=== PATIENT | male | born 1980 | race Caucasian/White ===

== ENCOUNTER 2017-12-28 07:47 | Inpatient (IN) | payer OTHER ==
[~2017-12-28] VITALS: Ht 167.6 cm; Wt 60.9 kg
[2017-12-28] VITALS (12 sets, daily range): BP systolic 109–179; BP diastolic 67–92; PULSE 80–143; RESP 16–20; TEMP 98.5–99.7; O2SAT 93–99
[~2017-12-28 07:47] MED LIST: IBUP800T23 PO
[2017-12-28 08:32] LABS: AUTOMATED NEUTROPHIL # 4.9 TH/MM3 (1.8-7.7); BASOPHIL % 0.6 % (0.0-2.0); HEMATOCRIT 43.5 % (39.0-51.0); HEMOGLOBIN 14.6 GM/DL (13.0-17.0); LYMPH % 4.9 % (9.0-44.0); LYMPHOCYTE # 0.3 TH/MM3 (1.0-4.8); MEAN CELL VOLUME 85.3 FL (80.0-100.0); MEAN CORPUSCULAR HEMOGLOBIN 28.7 PG (27.0-34.0); MEAN CORPUSCULAR HGB CONC 33.6 % (32.0-36.0); MEAN PLATELET VOLUME 7.7 FL (7.0-11.0); MONO % 8.5 % (0.0-8.0); MONOCYTE # 0.5 TH/MM3 (0-0.9); PLATELET COUNT 144 TH/MM3 (150-450); RED BLOOD COUNT 5.11 MIL/MM3 (4.50-5.90); RED CELL DISTRIBUTION WIDTH 13.5 % (11.6-17.2); WHITE BLOOD COUNT 5.7 TH/MM3 (4.0-11.0)
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
[2017-12-28 08:47] LABS: ALBUMIN 4.4 GM/DL (3.4-5.0); ALT (GPT) 164 U/L (12-78); AST (GOT) 232 U/L (15-37); BICARBONATE 26.8 MEQ/L (21.0-32.0); BLOOD UREA NITROGEN 14 MG/DL (7-18); CALCIUM 9.7 MG/DL (8.5-10.1); CHLORIDE 97 MEQ/L (98-107); CREATININE 1.39 MG/DL (0.60-1.30); GLOMERULAR FILTRATION RATE 58 ML/MIN (>89); GLUCOSE,RANDOM 124 MG/DL (74-106); SODIUM (NA) 139 MEQ/L (136-145)
[2017-12-28 08:56] LABS: ALKALINE PHOSPHATASE 111 U/L (45-117); TOTAL BILIRUBIN ADULT 0.9 MG/DL (0.2-1.0); TOTAL PROTEIN 8.3 GM/DL (6.4-8.2)
[2017-12-28] MEDS ORDERED: LORazepam 2 MG TAB PO PRN (12:15)
[2017-12-28] MEDS ORDERED: FLUMAZENIL 0.5 MG/5 ML VIAL IV PUSH PRN (12:15)
[2017-12-28] MEDS ORDERED: LORazepam 1 MG TAB PO PRN (12:15)
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
[2017-12-28] MEDS ORDERED: SODIUM CHLORIDE 0.9% FLUSH 10 ML FLUSH IV FLUSH PRN (20:00)
[2017-12-28] MEDS ORDERED: LORazepam 2 MG/ML VIAL IM ONE (20:15)
[2017-12-28] MEDS ORDERED: HALOPERIDOL LACTATE 5 MG/ML AMP IM ONE (20:15)
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
[2017-12-28] MEDS ORDERED: SODIUM CHLOR 0.9% 1000 ML INJ 1,000 ML IV ONE (21:15)
[2017-12-28 21:28] LABS: BLOOD, URINE NEG (NEG); CALCIUM OXALATE CRYSTALS,URINE RARE /hpf; GLUCOSE,URINE 300 mg/dL (NEG); HYALINE CAST, URINE 9 /lpf (RARE); KETONE, URINE TRACE mg/dL (NEG); MUCUS URINE FEW /lpf (OCC); NITRITE,URINE NEG (NEG); URINE LEUKOCYTE ESTERASE NEG (NEG)
[2017-12-28 21:30] LABS: BILIRUBIN, URINE NEG (NEG); URINE COLOR AMBER (YELLW/STRAW)
[2017-12-28] MEDS: LORazepam 2 MG/ML VIAL IV PUSH PRN ×6 (22:05→23:27)
[2017-12-28] MEDS ORDERED: LACTULOSE SYRUP 20 GM/30 ML CUP PO ONE (22:15)
[2017-12-28] MEDS ORDERED: OLANZapine IM 10 MG VIAL IM ONE (23:00)
[2017-12-29] VITALS (23 sets, daily range): BP systolic 108–168; BP diastolic 69–101; PULSE 47–110; RESP 14–30; TEMP 97.8–99.1; O2SAT 93–100
[2017-12-29] MEDS ORDERED: SODIUM CHLOR 0.9% 1000 ML INJ 1,000 ML IV ONE
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
[2017-12-29] MEDS ORDERED: SODIUM CHLOR 0.9% 1000 ML INJ 1,000 ML IV SCH (00:17)
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
[2017-12-29] MEDS: LORazepam 2 MG/ML VIAL IV PUSH PRN ×3 (00:26→09:08)
[2017-12-29] MEDS ORDERED: LACTULOSE SYRUP 20 GM/30 ML CUP PO PRN (00:30)
[2017-12-29] MEDS ORDERED: DEXMEDETOMIDINE INJ 200 MCG in SODIUM CHLORIDE 0.9% INJ 50 ML IV PRN (00:30)
[2017-12-29] MEDS ORDERED: SENNOSIDES 8.6 MG TAB PO PRN (00:30)
[2017-12-29] MEDS ORDERED: CHLORHEXIDINE GLUCONATE 2 % 1 PACK (2 CLOTHS) TOP PRN (00:30)
[2017-12-29] MEDS ORDERED: NURSING INFORMATION XX SCH (00:30)
[2017-12-29] MEDS ORDERED: ONDANSETRON ODT 4 MG TAB PO PRN (00:30)
[2017-12-29] MEDS ORDERED: ACETAMINOPHEN/HYDROcodone 325 MG/5 MG TAB PO PRN (00:30)
[2017-12-29] MEDS ORDERED: MAGNESIUM HYDROXIDE SUSP 30 ML CUP PO PRN (00:30)
[2017-12-29] MEDS ORDERED: BISACODYL 10 MG SUPP RECTAL PRN (00:30)
[2017-12-29] MEDS ORDERED: ACETAMINOPHEN 325 MG TAB PO PRN (00:30)
[2017-12-29] MEDS ORDERED: SODIUM CHLORIDE 0.9% FLUSH 10 ML FLUSH IV FLUSH PRN ×2 (00:30)
[2017-12-29] MEDS ORDERED: RESP: ALBUTEROL 2.5 MG/3 ML NEB (PRN) INH (00:30)
[2017-12-29] MEDS ORDERED: MORPHINE SULFATE 4 MG/ML INJ IV PUSH PRN (00:30)
[2017-12-29] MEDS: MULTIVITAMIN INJ 10 ML, FOLIC ACID INJ 1 MG in SODIUM CHLORID 0.9% 500 ML INJ 500 ML IV SCH (01:00)
[2017-12-29] MEDS ORDERED: ROCURONIUM INJ 100 MG/10 ML VIAL IV ONE (02:30)
[2017-12-29] MEDS ORDERED: ETOMIDATE 40 MG/20 ML VIAL IV PUSH ONE (02:30)
[2017-12-29] MEDS: PROPOFOL 1000 MG/100 ML INJ 100 ML IV PRN ×3 (03:15→17:33)
[2017-12-29] MEDS: fentaNYL DRIP 250 ML IV PRN ×2 (03:15→21:55)
--- NOTE | 2017-12-29 03:49 | RADRPT ---
EXAM DATE/TIME: 12/29/2017 03:05 [facility] COMPARISON: No previous studies available for comparison. INDICATIONS : Intubation tube placement. MEDICAL HISTORY : None. SURGICAL HISTORY : None. ENCOUNTER: Initial ACUITY: 1 day PAIN SCORE: Non-responsive. LOCATION: Bilateral chest FINDINGS: Tip of the endotracheal tube 2 cm from the bandar. Heart normal size. Linear atelectasis within the r etrocardiac left base. Right lung is clear.. No pneumothorax or effusion. CONCLUSION: Endotracheal tube in good position. Naif Low Jr., MD on December 29, 2017 at 3:47 Board Certified Radiologist. This report was verified electronically.
[2017-12-29] MEDS: CHLORHEXIDINE GLUCONATE 2 % 1 PACK (2 CLOTHS) TOP SCH (04:00)
[2017-12-29] MEDS: RESP: ALBUTEROL 2.5 MG/IPRATROPIUM 0.5 MG NEB (SCH) INH ×4 (04:45→20:26)
[2017-12-29] MEDS ORDERED: POTASSIUM PHOSPHATE INJ 30 MMOL in SODIUM CHLOR 0.9% 250 ML INJ 250 ML IV PRN (06:00)
[2017-12-29] MEDS ORDERED: SODIUM PHOSPHATE INJ 30 MMOL in SODIUM CHLOR 0.9% 250 ML INJ 240 ML IV PRN (06:00)
[2017-12-29] MEDS ORDERED: POTASSIUM CHLORIDE 25 MEQ EFFERVESCENT TAB PO PRN (06:00)
[2017-12-29] MEDS ORDERED: DEXTROSE 50% IN WATER 50 ML VIAL(D50) IV PUSH PRN (06:00)
[2017-12-29] MEDS ORDERED: POTASSIUM PHOSPHATE MONOBASIC 500 MG TAB PO/TUBE PRN (06:00)
[2017-12-29] MEDS ORDERED: MAGNESIUM SULFATE INJ 2 GM in SODIUM CHLORIDE 0.9% INJ 96 ML IV PRN (06:00)
[2017-12-29] MEDS ORDERED: GLUCAGON 1 MG/ML VIAL OTHER PRN (06:00)
[2017-12-29] MEDS ORDERED: POTASSIUM CHLOR 40 MEQ PREMIX 100 ML IV PRN ×2 (06:00)
[2017-12-29] MEDS ORDERED: POTASSIUM PHOSPHATE MONOBASIC 500 MG TAB PO PRN (06:00)
[2017-12-29] MEDS ORDERED: MAGNESIUM SULFATE INJ 4 GM in SODIUM CHLORIDE 0.9% INJ 92 ML IV PRN (06:00)
[2017-12-29] MEDS ORDERED: ACETAMINOPHEN 650 MG/20.3 ML UDC PO PRN (06:00)
[2017-12-29] MEDS: INSULIN ASPART SUPPLEMENTAL SCALE SQ SCH ×3 (06:00→17:42)
[2017-12-29] MEDS ORDERED: MAGNESIUM OXIDE 400 MG TAB PO PRN (06:00)
[2017-12-29] MEDS: LACTATED RINGER'S 1000 ML INJ 1,000 ML IV SCH ×4 (06:41→21:06)
[2017-12-29] MEDS: SODIUM CHLORIDE 0.9% FLUSH 10 ML FLUSH IV FLUSH SCH ×4 (07:53→20:00)
[2017-12-29] MEDS: DOCUSATE SODIUM 50 MG/SENNA 8.6 MG TAB PO SCH ×2 (07:53→19:25)
[2017-12-29] MEDS: PANTOPRAZOLE SODIUM 40 MG VIAL IV PUSH SCH (07:53)
[2017-12-29] MEDS: LACTULOSE SYRUP 20 GM/30 ML CUP PO SCH ×2 (07:53→20:06)
[2017-12-29] MEDS: DEXMEDETOMIDINE INJ 1,000 MCG in SODIUM CHLOR 0.9% 250 ML INJ 240 ML IV PRN (07:53)
[2017-12-29 08:29] LABS: BICARBONATE 25.4 MEQ/L (21.0-32.0); CALCIUM 7.8 MG/DL (8.5-10.1); CREATININE 0.7 MG/DL (0.60-1.30); MAGNESIUM 1.9 MG/DL (1.5-2.5)
[2017-12-29] MEDS: POTASSIUM CHLOR 20 MEQ PREMIX 100 ML IV PRN ×7 (08:36→20:08)
--- NOTE | 2017-12-29 11:22 | RADRPT ---
EXAM DATE/TIME: 12/29/2017 10:15 [facility] COMPARISON: No previous studies available for comparison. INDICATIONS : Increased lab values. MEDICAL HISTORY : Tobacco use. Altered mental status. SURGICAL HISTORY : Unable to obtain. ENCOUNTER: Initial ACUITY: 1 day PAIN SCORE: Nonresponsive. LOCATION: Bilateral upper quadrant MEASUREMENTS: LIVER: 16.3 cm length COMMON DUCT: 5 mm RIGHT KIDNEY: 11.2 x 4.6 x 3.7 cm SPLEEN: 10.7 cm length FINDINGS: LIVER: Increased echotexture without focal lesion or ductal dilatation. COMMON DUCT: No intraluminal mass or stone visualized. GALLBLADDER: Contains no stones, demonstrates no wall thickening or pericholecystic fluid. PANCREAS: The visualized portions are within normal limits. RIGHT KIDNEY: No hydronephrosis, stone or mass. SPLEEN: No focal lesion. CONCLUSION: The liver is echogenic and size upper limits normal. This is nonspecific but can be seen with steatos is for underlying hepatocellular disease. Kt Sharp MD on December 29, 2017 at 11:20 Board Certified Radiologist. This report was verified electronically.
[2017-12-29] MEDS: CHLORHEXIDINE 0.12% (ORAL KIT) 15 ML CUP MT SCH ×3 (12:54→20:06)
[2017-12-29] MEDS: ARTIFICIAL TEARS OPTH SOLN 15 ML BTL EACH EYE SCH ×2 (12:55→15:01)
--- NOTE | 2017-12-29 17:14 | MG ---
cc: Mohan Johnson MD, Mandeep MD EEG RECORD [id number] CLINICAL HISTORY: A 37-year-old history of mental status changes, intubated on sedation. INTERPRETATION: Posterior rhythm demonstrates 8-10 Hz activity, 20-60 microvolts. Increased beta frequencies, reduced driving with photic stimulation. Good EEG variability reactivity. Sharply contoured theta waveforms epoch 95 left frontal. No epileptic activity appreciated. IMPRESSION: Overall normal, possibly sleep appearing electroencephalogram with increased beta frequencies likely psychotropic medication effect. Clinical correlation. Mohan Johnson MD MG/SA , 04:55 PM , 05:13 PM
[2017-12-29 19:24] LABS: BICARBONATE 26.2 MEQ/L (21.0-32.0); CALCIUM 8.6 MG/DL (8.5-10.1); CREATININE 0.78 MG/DL (0.60-1.30); MAGNESIUM 1.9 MG/DL (1.5-2.5); PHOSPHORUS 3.2 MG/DL (2.5-4.9)
[2017-12-30] VITALS (20 sets, daily range): BP systolic 135–182; BP diastolic 64–102; PULSE 57–96; RESP 14–20; TEMP 98.3–100.2; O2SAT 97–100
[2017-12-30] MEDS: MULTIVITAMIN INJ 10 ML, FOLIC ACID INJ 1 MG in SODIUM CHLORID 0.9% 500 ML INJ 500 ML IV SCH ×2 (00:32→00:33)
[2017-12-30] MEDS: POTASSIUM CHLOR 20 MEQ PREMIX 100 ML IV PRN ×2 (01:24→03:54)
[2017-12-30] MEDS: CHLORHEXIDINE GLUCONATE 2 % 1 PACK (2 CLOTHS) TOP SCH (03:15)
[2017-12-30] MEDS: RESP: ALBUTEROL 2.5 MG/IPRATROPIUM 0.5 MG NEB (SCH) INH ×4 (03:51→20:44)
[2017-12-30 04:13] LABS: AUTOMATED NEUTROPHIL # 2.5 TH/MM3 (1.8-7.7); BASOPHIL % 0.8 % (0.0-2.0); EOSINOPHIL # 0.2 TH/MM3 (0-0.4); EOSINOPHIL % 4.1 % (0.0-4.0); HEMATOCRIT 39.2 % (39.0-51.0); HEMOGLOBIN 13.1 GM/DL (13.0-17.0); LYMPH % 22.4 % (9.0-44.0); MEAN CELL VOLUME 86.5 FL (80.0-100.0); MEAN CORPUSCULAR HEMOGLOBIN 28.9 PG (27.0-34.0); MEAN CORPUSCULAR HGB CONC 33.4 % (32.0-36.0); MEAN PLATELET VOLUME 7.1 FL (7.0-11.0); MONO % 15.4 % (0.0-8.0); MONOCYTE # 0.7 TH/MM3 (0-0.9); NEUT % 57.3 % (16.0-70.0); PLATELET COUNT 89 TH/MM3 (150-450); RED BLOOD COUNT 4.54 MIL/MM3 (4.50-5.90); RED CELL DISTRIBUTION WIDTH 13.5 % (11.6-17.2); WHITE BLOOD COUNT 4.4 TH/MM3 (4.0-11.0)
[2017-12-30 04:25] LABS: INTERNATIONAL NORMALIZED RATIO 1.1 RATIO; PROTHROMBIN TIME - PATIENT 10.7 SEC (9.8-11.6)
[2017-12-30 04:34] LABS: ALBUMIN 3.1 GM/DL (3.4-5.0); ALT (GPT) 194 U/L (12-78); AST (GOT) 437 U/L (15-37); BICARBONATE 22.8 MEQ/L (21.0-32.0); BLOOD UREA NITROGEN 11 MG/DL (7-18); CALCIUM 8.1 MG/DL (8.5-10.1); CHLORIDE 111 MEQ/L (98-107); CREATININE 0.79 MG/DL (0.60-1.30); GLOMERULAR FILTRATION RATE 112 ML/MIN (>89); GLUCOSE,RANDOM 60 MG/DL (74-106); MAGNESIUM 1.8 MG/DL (1.5-2.5); PHOSPHORUS 3.3 MG/DL (2.5-4.9); SODIUM (NA) 145 MEQ/L (136-145)
--- NOTE | 2017-12-30 04:54 | RADRPT ---
EXAM DATE/TIME: 12/30/2017 03:18 [facility] COMPARISON: CHEST SINGLE AP, December 29, 2017, 3:05. INDICATIONS : Shortness of breath, possible pulmonary disease. MEDICAL HISTORY : None. SURGICAL HISTORY : None. ENCOUNTER: Subsequent ACUITY: 2 days PAIN SCORE: Non-responsive. LOCATION: Bilateral chest FINDINGS: A single view of the chest demonstrates endotracheal tube and nasogastric tube in good position. Mini mal basilar dependent atelectasis. No pneumothorax or effusion. Heart size mildly enlarged. CONCLUSION: 1. Endotracheal tube and nasogastric tube in good position. Minimal basilar and dependent atelectasis . Balta Hernandez MD on December 30, 2017 at 4:52 Board Certified Radiologist. This report was verified electronically.
[2017-12-30 05:08] LABS: ALKALINE PHOSPHATASE 152 U/L (45-117); TOTAL BILIRUBIN ADULT 2.8 MG/DL (0.2-1.0); TOTAL PROTEIN 6.3 GM/DL (6.4-8.2)
[2017-12-30] MEDS: INSULIN ASPART SUPPLEMENTAL SCALE SQ SCH ×5 (05:28→23:05)
[2017-12-30] MEDS: LORazepam 2 MG/ML VIAL IV PUSH PRN (08:15)
[2017-12-30] MEDS: DOCUSATE SODIUM 50 MG/SENNA 8.6 MG TAB PO SCH ×2 (08:16→19:22)
[2017-12-30] MEDS: LACTULOSE SYRUP 20 GM/30 ML CUP PO SCH ×2 (08:16→20:00)
[2017-12-30] MEDS: PANTOPRAZOLE SODIUM 40 MG VIAL IV PUSH SCH (08:17)
[2017-12-30] MEDS: ARTIFICIAL TEARS OPTH SOLN 15 ML BTL EACH EYE SCH ×3 (08:18→17:47)
[2017-12-30] MEDS: SODIUM CHLORIDE 0.9% FLUSH 10 ML FLUSH IV FLUSH SCH ×4 (08:18→19:22)
[2017-12-30] MEDS: CHLORHEXIDINE 0.12% (ORAL KIT) 15 ML CUP MT SCH ×2 (08:19→19:22)
[2017-12-30] MEDS: LACTATED RINGER'S 1000 ML INJ 1,000 ML IV SCH ×3 (08:22→21:40)
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
[2017-12-30] MEDS: DEXMEDETOMIDINE INJ 1,000 MCG in SODIUM CHLOR 0.9% 250 ML INJ 240 ML IV PRN (14:48)
[2017-12-30] MEDS: HEPARIN SODIUM - SQ 10,000 UNITS/ML VIAL SQ SCH (20:01)
[2017-12-31] VITALS (13 sets, daily range): BP systolic 123–149; BP diastolic 80–90; PULSE 57–93; RESP 18–26; TEMP 98–99.4; O2SAT 97–100
[2017-12-31] MEDS: MULTIVITAMIN INJ 10 ML, FOLIC ACID INJ 1 MG in SODIUM CHLORID 0.9% 500 ML INJ 500 ML IV SCH (00:01)
[2017-12-31] MEDS: CHLORHEXIDINE GLUCONATE 2 % 1 PACK (2 CLOTHS) TOP SCH (02:57)
[2017-12-31] MEDS: LORazepam 2 MG/ML VIAL IV PUSH PRN ×2 (03:15→23:51)
[2017-12-31] MEDS: RESP: ALBUTEROL 2.5 MG/IPRATROPIUM 0.5 MG NEB (SCH) INH ×4 (03:29→21:10)
[2017-12-31] MEDS: LACTATED RINGER'S 1000 ML INJ 1,000 ML IV SCH ×4 (04:40→21:03)
[2017-12-31] MEDS: INSULIN ASPART SUPPLEMENTAL SCALE SQ SCH ×3 (05:09→18:00)
[2017-12-31 06:41] LABS: ALBUMIN 3.1 GM/DL (3.4-5.0); ALKALINE PHOSPHATASE 135 U/L (45-117); ALT (GPT) 193 U/L (12-78); AST (GOT) 517 U/L (15-37); BICARBONATE 28.5 MEQ/L (21.0-32.0); BLOOD UREA NITROGEN 5 MG/DL (7-18); CALCIUM 8.6 MG/DL (8.5-10.1); CHLORIDE 101 MEQ/L (98-107); CREATININE 0.68 MG/DL (0.60-1.30); GLOMERULAR FILTRATION RATE 133 ML/MIN (>89); GLUCOSE,RANDOM 101 MG/DL (74-106); SODIUM (NA) 139 MEQ/L (136-145); TOTAL BILIRUBIN ADULT 1.8 MG/DL (0.2-1.0); TOTAL PROTEIN 6.5 GM/DL (6.4-8.2)
[2017-12-31] MEDS: POTASSIUM CHLOR 20 MEQ PREMIX 100 ML IV PRN (06:45)
[2017-12-31 07:31] LABS: AUTOMATED NEUTROPHIL # 2.9 TH/MM3 (1.8-7.7); BASOPHIL # 0.1 TH/MM3 (0-0.2); BASOPHIL % 1.5 % (0.0-2.0); EOSINOPHIL # 0.4 TH/MM3 (0-0.4); EOSINOPHIL % 6.4 % (0.0-4.0); HEMATOCRIT 39.1 % (39.0-51.0); HEMOGLOBIN 13.3 GM/DL (13.0-17.0); LYMPH % 20.8 % (9.0-44.0); LYMPHOCYTE # 1.2 TH/MM3 (1.0-4.8); MEAN CELL VOLUME 85.2 FL (80.0-100.0); MEAN CORPUSCULAR HEMOGLOBIN 29.1 PG (27.0-34.0); MEAN CORPUSCULAR HGB CONC 34.1 % (32.0-36.0); MEAN PLATELET VOLUME 7.4 FL (7.0-11.0); MONO % 19.2 % (0.0-8.0); MONOCYTE # 1.1 TH/MM3 (0-0.9); NEUT % 52.1 % (16.0-70.0); PLATELET COUNT 91 TH/MM3 (150-450); RED BLOOD COUNT 4.59 MIL/MM3 (4.50-5.90); RED CELL DISTRIBUTION WIDTH 13.1 % (11.6-17.2); WHITE BLOOD COUNT 5.6 TH/MM3 (4.0-11.0)
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
[2017-12-31] MEDS: CHLORHEXIDINE 0.12% (ORAL KIT) 15 ML CUP MT SCH ×2 (08:00→20:00)
[2017-12-31] MEDS: DOCUSATE SODIUM 50 MG/SENNA 8.6 MG TAB PO SCH ×2 (08:25→21:00)
[2017-12-31] MEDS: LACTULOSE SYRUP 20 GM/30 ML CUP PO SCH ×2 (08:25→21:00)
[2017-12-31] MEDS: HEPARIN SODIUM - SQ 10,000 UNITS/ML VIAL SQ SCH ×2 (08:26→21:00)
[2017-12-31] MEDS: PANTOPRAZOLE SODIUM 40 MG VIAL IV PUSH SCH (08:26)
[2017-12-31] MEDS: SODIUM CHLORIDE 0.9% FLUSH 10 ML FLUSH IV FLUSH SCH ×4 (08:27→21:00)
[2017-12-31] MEDS: ARTIFICIAL TEARS OPTH SOLN 15 ML BTL EACH EYE SCH ×3 (08:28→18:00)
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
[2017-12-31] MEDS: DEXMEDETOMIDINE INJ 1,000 MCG in SODIUM CHLOR 0.9% 250 ML INJ 240 ML IV PRN (21:02)
[2018-01-01] VITALS (22 sets, daily range): BP systolic 97–185; BP diastolic 54–106; PULSE 56–101; RESP 20–37; TEMP 97.5–98.9; O2SAT 97–100
[2018-01-01] MEDS ORDERED: DEXMEDETOMIDINE INJ 1,000 MCG in SODIUM CHLOR 0.9% 250 ML INJ 240 ML IV PRN (00:15)
[2018-01-01] MEDS: LORazepam 2 MG/ML VIAL IV PUSH PRN ×11 (00:34→17:36)
[2018-01-01] MEDS: MULTIVITAMIN INJ 10 ML, FOLIC ACID INJ 1 MG in SODIUM CHLORID 0.9% 500 ML INJ 500 ML IV SCH ×2 (01:00→23:26)
[2018-01-01] MEDS ORDERED: HALOPERIDOL LACTATE 5 MG/ML AMP IV PUSH ONE (01:45)
[2018-01-01] MEDS ORDERED: LORazepam 2 MG/ML VIAL IV PUSH ONE (01:45)
[2018-01-01] MEDS ORDERED: diphenhydrAMINE HCL 50 MG/ML VIAL IV PUSH ONE (01:45)
[2018-01-01] MEDS ORDERED: SUCCINYLCHOLINE CHLORIDE 200 MG/10 ML VIAL ONE (02:03)
[2018-01-01] MEDS: ZIPRASIDONE MESYLATE 20 MG VIAL IM PRN (02:41)
[2018-01-01] MEDS: RESP: ALBUTEROL 2.5 MG/IPRATROPIUM 0.5 MG NEB (SCH) INH ×4 (03:28→20:20)
[2018-01-01] MEDS ORDERED: LABETALOL HCL 100 MG/20 ML VIAL IV PUSH PRN (03:45)
[2018-01-01] MEDS ORDERED: hydrALAZINE HCL 20 MG/ML VIAL IV PUSH PRN (03:45)
[2018-01-01 03:55] LABS: HEMATOCRIT 41.2 % (39.0-51.0); HEMOGLOBIN 13.8 GM/DL (13.0-17.0); MEAN CELL VOLUME 85.9 FL (80.0-100.0); MEAN CORPUSCULAR HEMOGLOBIN 28.8 PG (27.0-34.0); MEAN CORPUSCULAR HGB CONC 33.5 % (32.0-36.0); MEAN PLATELET VOLUME 7.4 FL (7.0-11.0); PLATELET COUNT 112 TH/MM3 (150-450); RED BLOOD COUNT 4.79 MIL/MM3 (4.50-5.90); WHITE BLOOD COUNT 5.7 TH/MM3 (4.0-11.0)
[2018-01-01] MEDS: CHLORHEXIDINE GLUCONATE 2 % 1 PACK (2 CLOTHS) TOP SCH (04:00)
[2018-01-01 04:09] LABS: ALBUMIN 3.6 GM/DL (3.4-5.0); ALT (GPT) 193 U/L (12-78); AST (GOT) 414 U/L (15-37); BICARBONATE 29.5 MEQ/L (21.0-32.0); BLOOD UREA NITROGEN 8 MG/DL (7-18); CALCIUM 9.2 MG/DL (8.5-10.1); CHLORIDE 105 MEQ/L (98-107); GLOMERULAR FILTRATION RATE 110 ML/MIN (>89); GLUCOSE,RANDOM 123 MG/DL (74-106); SODIUM (NA) 142 MEQ/L (136-145)
[2018-01-01 04:34] LABS: ALKALINE PHOSPHATASE 124 U/L (45-117); TOTAL BILIRUBIN ADULT 1.1 MG/DL (0.2-1.0); TOTAL PROTEIN 7.2 GM/DL (6.4-8.2)
[2018-01-01] MEDS: INSULIN ASPART SUPPLEMENTAL SCALE SQ SCH ×5 (05:09→23:25)
[2018-01-01] MEDS: LACTATED RINGER'S 1000 ML INJ 1,000 ML IV SCH ×3 (05:16→20:40)
[2018-01-01] MEDS: CHLORHEXIDINE 0.12% (ORAL KIT) 15 ML CUP MT SCH ×2 (08:00→20:00)
[2018-01-01] MEDS: SODIUM CHLORIDE 0.9% FLUSH 10 ML FLUSH IV FLUSH SCH ×2 (08:54→21:00)
[2018-01-01] MEDS: PANTOPRAZOLE SODIUM 40 MG VIAL IV PUSH SCH (08:54)
[2018-01-01] MEDS: HEPARIN SODIUM - SQ 10,000 UNITS/ML VIAL SQ SCH ×2 (08:54→21:00)
[2018-01-01] MEDS: THIAMINE HCL 100 MG TAB PO SCH (09:00)
[2018-01-01] MEDS: DOCUSATE SODIUM 50 MG/SENNA 8.6 MG TAB PO SCH ×2 (09:00→21:00)
[2018-01-01] MEDS: ARTIFICIAL TEARS OPTH SOLN 15 ML BTL EACH EYE SCH ×3 (09:00→17:37)
[2018-01-01] MEDS: LACTULOSE SYRUP 20 GM/30 ML CUP PO SCH ×2 (09:00→21:00)
--- NOTE | 2018-01-01 14:07 | HHI.PYPN ---
Subjective Remarks Patient was seen today for psychiatric reevaluation. EMR was reviewed. The case was discussed with nurse in charge. The patient is found restraint in 4 points. He is agitated, combative, very disorganized and incoherent, unable to provide any meaningful information for the psychiatric evaluation. Mental Status Examination Appearance: Appropriate Consciousness: Alert Orientation: Person, Place (hospital) Motor Activity: Normal gait Speech: Unremarkable Language: Adequate Fund of Knowledge: Adequate Attention and Concentration: Easily Distracted Memory: Impaired (mild) Mood: Appropriate Affect: Appropriate Thought Process & Associations: Circumstantial Thought Content: Appropriate Hallucination Type: None Delusion Type: None Suicidal Ideation: No Suicidal Plan: No Suicidal Intention: No Homicidal Ideation: No Homicidal Plan: No Homicidal Intention: No Insight: Poor Judgment: Poor Results Labs Test 12/31/17 22:13 01/01/18 03:35 01/01/18 13:50 Total Creatine Kinase 9277 U/L 80390 U/L Creatine Kinase MB 2.7 NG/ML 3.4 NG/ML Creatine Kinase MB % 0.0 % 0.0 % White Blood Count 5.7 TH/MM3 Red Blood Count 4.79 MIL/MM3 Hemoglobin 13.8 GM/DL Hematocrit 41.2 % Mean Corpuscular Volume 85.9 FL Mean Corpuscular Hemoglobin 28.8 PG Mean Corpuscular Hemoglobin Concent 33.5 % Red Cell Distribution Width 13.0 % Platelet Count 112 TH/MM3 Mean Platelet Volume 7.4 FL Blood Urea Nitrogen 8 MG/DL Creatinine 0.80 MG/DL Random Glucose 123 MG/DL Total Protein 7.2 GM/DL Albumin 3.6 GM/DL Calcium Level 9.2 MG/DL Alkaline Phosphatase 124 U/L Aspartate Amino Transf (AST/SGOT) 414 U/L Alanine Aminotransferase (ALT/SGPT) 193 U/L Total Bilirubin 1.1 MG/DL Sodium Level 142 MEQ/L Potassium Level 3.8 MEQ/L Chloride Level 105 MEQ/L Carbon Dioxide Level 29.5 MEQ/L Anion Gap 8 MEQ/L Estimat Glomerular Filtration Rate 110 ML/MIN Vitals/IOs Vital Signs Date Time Temp Pulse Resp B/P (MAP) Pulse Ox O2 Delivery O2 Flow Rate FiO2 01/01/18 08:00 97.5 78 22 115/72 (86) 100 01/01/18 07:15 Nasal Cannula 2.00 12/31/17 21:11 21 Intake and Output 01/01/18 01/01/18 01/02/18 08:00 16:00 00:00 Intake Total 1320 ml Output Total 1900 ml Balance -580 ml Assessment & Plan Problem List: (1) Delirium due to multiple etiologies ICD Codes: F05 - Delirium due to known physiological condition Assessment & Plan: I will add Haldol 5 mg every 8 hours as needed aggressive behavior and agitation to alternate with Geodon 20 mg IM every 8 hours as needed aggressive behavior and agitation. Continue CIWA. Continue under Pollack act (2) Alcohol withdrawal delirium ICD Codes: F10.231 - Alcohol dependence with withdrawal delirium Status: Acute (3) Hyperammonemia ICD Codes: E72.20 - Disorder of urea cycle metabolism, unspecified Status: Acute (4) Rhabdomyolysis ICD Codes: M62.82 - Rhabdomyolysis Status: Acute Assessment & Plan Estimated LOS: days Justification for Cont. Inpt. If the patient needs psychiatric admission has not been established. Problem Qualifiers (1) Rhabdomyolysis: Qualified Codes: M62.82 - Rhabdomyolysis Charlie Brown MD January 01, 2018 14:07
[2018-01-01] MEDS ORDERED: HALOPERIDOL LACTATE 5 MG/ML AMP IM PRN (14:15)
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
[2018-01-01] MEDS: HALOPERIDOL LACTATE 5 MG/ML AMP IV PUSH PRN (18:39)
[2018-01-02] VITALS (21 sets, daily range): BP systolic 110–158; BP diastolic 57–97; PULSE 92–138; RESP 30–41; TEMP 98.4–98.6; O2SAT 94–99
[2018-01-02] MEDS: LACTATED RINGER'S 1000 ML INJ 1,000 ML IV SCH ×3 (02:23→17:04)
[2018-01-02] MEDS: LORazepam 2 MG/ML VIAL IV PUSH PRN ×22 (02:24→20:19)
[2018-01-02] MEDS: CHLORHEXIDINE GLUCONATE 2 % 1 PACK (2 CLOTHS) TOP SCH (02:37)
[2018-01-02] MEDS: ZIPRASIDONE MESYLATE 20 MG VIAL IM PRN ×2 (03:15→11:21)
[2018-01-02] MEDS: RESP: ALBUTEROL 2.5 MG/IPRATROPIUM 0.5 MG NEB (SCH) INH ×4 (03:19→22:44)
[2018-01-02] MEDS: HALOPERIDOL LACTATE 5 MG/ML AMP IV PUSH PRN ×3 (04:13→15:42)
[2018-01-02 04:57] LABS: HEMOGLOBIN 13.6 GM/DL (13.0-17.0); MEAN CELL VOLUME 86.2 FL (80.0-100.0); MEAN CORPUSCULAR HEMOGLOBIN 28.6 PG (27.0-34.0); MEAN CORPUSCULAR HGB CONC 33.2 % (32.0-36.0); MEAN PLATELET VOLUME 7.4 FL (7.0-11.0); PLATELET COUNT 154 TH/MM3 (150-450); RED BLOOD COUNT 4.76 MIL/MM3 (4.50-5.90); RED CELL DISTRIBUTION WIDTH 13.3 % (11.6-17.2); WHITE BLOOD COUNT 6.6 TH/MM3 (4.0-11.0)
[2018-01-02 05:14] LABS: ALBUMIN 3.3 GM/DL (3.4-5.0); AST (GOT) 174 U/L (15-37); BICARBONATE 26.2 MEQ/L (21.0-32.0); BLOOD UREA NITROGEN 7 MG/DL (7-18); CALCIUM 9.3 MG/DL (8.5-10.1); CHLORIDE 104 MEQ/L (98-107); CREATININE 0.76 MG/DL (0.60-1.30); GLOMERULAR FILTRATION RATE 117 ML/MIN (>89); GLUCOSE,RANDOM 87 MG/DL (74-106); SODIUM (NA) 142 MEQ/L (136-145)
[2018-01-02 05:16] LABS: ALT (GPT) 143 U/L (12-78)
[2018-01-02 05:30] LABS: ALKALINE PHOSPHATASE 105 U/L (45-117); TOTAL BILIRUBIN ADULT 1.1 MG/DL (0.2-1.0); TOTAL PROTEIN 6.7 GM/DL (6.4-8.2)
[2018-01-02] MEDS: INSULIN ASPART SUPPLEMENTAL SCALE SQ SCH ×4 (06:00→23:53)
[2018-01-02] MEDS: CHLORHEXIDINE 0.12% (ORAL KIT) 15 ML CUP MT SCH ×2 (07:17→20:00)
[2018-01-02] MEDS: POTASSIUM CHLOR 20 MEQ PREMIX 100 ML IV PRN ×4 (07:17→23:48)
[2018-01-02] MEDS: HEPARIN SODIUM - SQ 10,000 UNITS/ML VIAL SQ SCH ×2 (08:15→20:19)
[2018-01-02] MEDS: SODIUM CHLORIDE 0.9% FLUSH 10 ML FLUSH IV FLUSH SCH ×2 (08:16→20:19)
[2018-01-02] MEDS: PANTOPRAZOLE SODIUM 40 MG VIAL IV PUSH SCH (08:16)
[2018-01-02] MEDS: ARTIFICIAL TEARS OPTH SOLN 15 ML BTL EACH EYE SCH ×3 (08:16→17:05)
[2018-01-02] MEDS: LACTULOSE SYRUP 20 GM/30 ML CUP PO SCH ×2 (08:18→20:19)
[2018-01-02] MEDS: DOCUSATE SODIUM 50 MG/SENNA 8.6 MG TAB PO SCH ×2 (08:18→20:20)
[2018-01-02] MEDS: THIAMINE HCL 100 MG TAB PO SCH (08:18)
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
[2018-01-02] MEDS ORDERED: LACTULOSE LIQ 300 ML in WATER STERILE FOR IRR BTL 700 ML RECTAL ONE (16:00)
[2018-01-02] MEDS: MULTIVITAMIN INJ 10 ML, FOLIC ACID INJ 1 MG in SODIUM CHLORID 0.9% 500 ML INJ 500 ML IV SCH (17:04)
[2018-01-02 20:59] LABS: MAGNESIUM 1.9 MG/DL (1.5-2.5)
[2018-01-03] VITALS (21 sets, daily range): BP systolic 119–165; BP diastolic 60–91; PULSE 83–124; RESP 16–44; TEMP 98.1–98.9; O2SAT 87–100
[2018-01-03] MEDS: HALOPERIDOL LACTATE 5 MG/ML AMP IV PUSH PRN ×2 (00:13→08:01)
[2018-01-03] MEDS: LORazepam 2 MG/ML VIAL IV PUSH PRN ×7 (00:13→20:44)
[2018-01-03] MEDS: CHLORHEXIDINE GLUCONATE 2 % 1 PACK (2 CLOTHS) TOP SCH (04:00)
[2018-01-03] MEDS: RESP: ALBUTEROL 2.5 MG/IPRATROPIUM 0.5 MG NEB (SCH) INH ×4 (04:48→20:18)
[2018-01-03 04:52] LABS: ALBUMIN 3.3 GM/DL (3.4-5.0); BICARBONATE 24.2 MEQ/L (21.0-32.0); CREATININE 0.77 MG/DL (0.60-1.30); DIRECT BILIRUBIN ADULT 0.2 MG/DL (0.0-0.2); MAGNESIUM 1.8 MG/DL (1.5-2.5)
[2018-01-03 04:54] LABS: PHOSPHORUS 3.1 MG/DL (2.5-4.9)
[2018-01-03 04:55] LABS: INDIRECT BILIRUBIN 0.6 MG/DL (0.0-0.8); TOTAL BILIRUBIN ADULT 0.8 MG/DL (0.2-1.0); TOTAL PROTEIN 6.9 GM/DL (6.4-8.2)
[2018-01-03] MEDS: INSULIN ASPART SUPPLEMENTAL SCALE SQ SCH ×3 (06:00→18:00)
[2018-01-03] MEDS: LACTATED RINGER'S 1000 ML INJ 1,000 ML IV SCH ×4 (06:00→19:20)
[2018-01-03] MEDS: CHLORHEXIDINE 0.12% (ORAL KIT) 15 ML CUP MT SCH ×2 (08:00→20:00)
[2018-01-03] MEDS: HEPARIN SODIUM - SQ 10,000 UNITS/ML VIAL SQ SCH ×2 (08:01→20:44)
[2018-01-03] MEDS: LACTULOSE SYRUP 20 GM/30 ML CUP PO SCH ×2 (08:01→20:44)
[2018-01-03] MEDS: ARTIFICIAL TEARS OPTH SOLN 15 ML BTL EACH EYE SCH ×3 (08:01→17:11)
[2018-01-03] MEDS: THIAMINE HCL 100 MG TAB PO SCH (08:01)
[2018-01-03] MEDS: SODIUM CHLORIDE 0.9% FLUSH 10 ML FLUSH IV FLUSH SCH ×2 (08:01→20:44)
[2018-01-03] MEDS: DOCUSATE SODIUM 50 MG/SENNA 8.6 MG TAB PO SCH ×2 (08:01→20:44)
[2018-01-03] MEDS: PANTOPRAZOLE SODIUM 40 MG VIAL IV PUSH SCH (08:02)
[2018-01-03 10:14] LABS: AUTOMATED NEUTROPHIL # 2.8 TH/MM3 (1.8-7.7); BASOPHIL % 0.8 % (0.0-2.0); EOSINOPHIL # 0.2 TH/MM3 (0-0.4); EOSINOPHIL % 2.7 % (0.0-4.0); HEMATOCRIT 38.1 % (39.0-51.0); HEMOGLOBIN 12.7 GM/DL (13.0-17.0); LYMPH % 19.5 % (9.0-44.0); LYMPHOCYTE # 1.1 TH/MM3 (1.0-4.8); MEAN CELL VOLUME 86.5 FL (80.0-100.0); MEAN CORPUSCULAR HEMOGLOBIN 28.9 PG (27.0-34.0); MEAN CORPUSCULAR HGB CONC 33.5 % (32.0-36.0); MEAN PLATELET VOLUME 7.5 FL (7.0-11.0); MONO % 26.8 % (0.0-8.0); MONOCYTE # 1.5 TH/MM3 (0-0.9); NEUT % 50.2 % (16.0-70.0); PLATELET COUNT 216 TH/MM3 (150-450); RED CELL DISTRIBUTION WIDTH 13.3 % (11.6-17.2); WHITE BLOOD COUNT 5.7 TH/MM3 (4.0-11.0)
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
[2018-01-03] MEDS ORDERED: MAGNESIUM SULFATE 1 GM PREMIX 100 ML IV ONE (11:30)
[2018-01-03] MEDS: MULTIVITAMIN INJ 10 ML, FOLIC ACID INJ 1 MG in SODIUM CHLORID 0.9% 500 ML INJ 500 ML IV SCH (17:11)
[2018-01-04] VITALS (19 sets, daily range): BP systolic 128–160; BP diastolic 76–97; PULSE 71–100; RESP 22–46; TEMP 98.2–98.7; O2SAT 93–99
[2018-01-04] MEDS: RESP: ALBUTEROL 2.5 MG/IPRATROPIUM 0.5 MG NEB (SCH) INH ×4 (03:18→20:42)
[2018-01-04] MEDS: CHLORHEXIDINE GLUCONATE 2 % 1 PACK (2 CLOTHS) TOP SCH (04:00)
[2018-01-04 05:06] LABS: HEMATOCRIT 38.8 % (39.0-51.0); MEAN CELL VOLUME 86.8 FL (80.0-100.0); MEAN CORPUSCULAR HGB CONC 33.4 % (32.0-36.0); MEAN PLATELET VOLUME 7.3 FL (7.0-11.0); PLATELET COUNT 252 TH/MM3 (150-450); RED BLOOD COUNT 4.47 MIL/MM3 (4.50-5.90); RED CELL DISTRIBUTION WIDTH 13.1 % (11.6-17.2)
[2018-01-04 05:26] LABS: ALBUMIN 3.2 GM/DL (3.4-5.0); AST (GOT) 51 U/L (15-37); BICARBONATE 25.9 MEQ/L (21.0-32.0); BLOOD UREA NITROGEN 5 MG/DL (7-18); CALCIUM 8.9 MG/DL (8.5-10.1); CHLORIDE 105 MEQ/L (98-107); CREATININE 0.68 MG/DL (0.60-1.30); GLOMERULAR FILTRATION RATE 133 ML/MIN (>89); GLUCOSE,RANDOM 85 MG/DL (74-106); SODIUM (NA) 141 MEQ/L (136-145)
[2018-01-04 05:30] LABS: ALKALINE PHOSPHATASE 93 U/L (45-117); ALT (GPT) 96 U/L (12-78); TOTAL BILIRUBIN ADULT 0.7 MG/DL (0.2-1.0); TOTAL PROTEIN 6.7 GM/DL (6.4-8.2)
[2018-01-04] MEDS: LACTATED RINGER'S 1000 ML INJ 1,000 ML IV SCH ×3 (05:31→16:52)
[2018-01-04] MEDS: HEPARIN SODIUM - SQ 10,000 UNITS/ML VIAL SQ SCH ×3 (05:31→20:31)
[2018-01-04] MEDS: INSULIN ASPART SUPPLEMENTAL SCALE SQ SCH ×4 (05:39→18:00)
[2018-01-04] MEDS: CHLORHEXIDINE 0.12% (ORAL KIT) 15 ML CUP MT SCH ×2 (08:00→20:00)
[2018-01-04] MEDS: ARTIFICIAL TEARS OPTH SOLN 15 ML BTL EACH EYE SCH ×3 (09:00→16:55)
--- NOTE | 2018-01-04 09:35 | HHI.PR ---
Subjective Remarks Nursing denies any deterioration since last night. Says the patient has not truly woken up on her shift. Says that whenever they do try to wake him up just to modify his position they need 3 nurses to help restrain him. I reviewed the chart with the nurse, apparently there is no CIWA score charted for yesterday but 2 days ago his scores were reaching 20 and beyond. Objective Vital Signs Date Time Temp Pulse Resp B/P (MAP) Pulse Ox O2 Delivery O2 Flow Rate FiO2 01/04/18 09:03 98 01/04/18 06:00 89 01/04/18 04:00 87 01/04/18 04:00 98.2 87 27 128/76 (93) 97 01/04/18 02:00 94 01/04/18 00:00 98 01/04/18 00:00 98.7 98 46 155/97 (116) 96 01/03/18 22:00 106 01/03/18 20:18 100 21 01/03/18 20:00 98.1 92 19 132/81 (98) 98 01/03/18 20:00 92 01/03/18 18:00 95 01/03/18 17:00 95 138/90 (106) 92 01/03/18 16:00 98.4 95 132/88 (103) 87 01/03/18 16:00 95 01/03/18 15:00 90 119/86 (97) 100 01/03/18 14:00 83 139/73 (95) 100 01/03/18 14:00 83 01/03/18 13:00 99 129/86 (100) 89 01/03/18 12:00 89 01/03/18 12:00 98.9 89 24 139/84 (102) 97 01/03/18 11:00 94 17 144/66 (92) 97 01/03/18 10:00 106 01/03/18 10:00 106 16 143/80 (101) 96 I/O 01/03/18 01/03/18 01/03/18 01/04/18 01/04/18 01/04/18 07:00 15:00 23:00 07:00 15:00 23:00 Intake Total 200 ml 2100 ml 1990 ml 1000 ml Output Total 1150 ml 2100 ml 1000 ml Balance -950 ml 2100 ml -110 ml 0 ml Intake Oral 480 ml IV Total 200 ml 2100 ml 1510 ml 1000 ml Output Urine Total 1150 ml 2100 ml 1000 ml # Bowel Movements 5 1 0 Result Diagram: 01/04/1843901/04/18439 Objective Remarks Lying in bed, sleeping. When stimulated with sternal rub patient seems to get mildly agitated and mildly aroused, has a small amount of projectile emesis at this time Does not follow commands, makes nonsensical noises, moans and groans, does spontaneously move all extremities which are currently in restraints at this time Has abdominal tenderness to deep palpation otherwise abdomen is soft and nondistended A/P Assessment and Plan Acute Encephalopathy/Alcohol abuse/Delirium tremens positive. Geodon/Haldol and Ativan for CIWA. continue Multivitamin, Thiamine, Folic Acid. on CIWA protocol Pollack act in place psych following. on restraints for agitation elevated ammonia level/transaminases - improving, follow clinically - Likely secondary EtOH/elevated CPK. Rhabdomyolysis - awaiting repeat CPK, most recently noted to be trending down serial CPKs, Aggressive hydration, trending down. thrombocytopenia - resolved, likely 2/2 ETOH myelosuppression SCDs Joey Smith MD January 04, 2018 09:35
[2018-01-04] MEDS: DOCUSATE SODIUM 50 MG/SENNA 8.6 MG TAB PO SCH ×2 (11:54→20:31)
[2018-01-04] MEDS: SODIUM CHLORIDE 0.9% FLUSH 10 ML FLUSH IV FLUSH SCH ×2 (11:55→20:31)
[2018-01-04] MEDS: LACTULOSE SYRUP 20 GM/30 ML CUP PO SCH ×2 (11:55→20:31)
[2018-01-04] MEDS: PANTOPRAZOLE SODIUM 40 MG VIAL IV PUSH SCH (11:55)
[2018-01-04] MEDS: THIAMINE HCL 100 MG TAB PO SCH (11:55)
[2018-01-04] MEDS: MULTIVITAMIN INJ 10 ML, FOLIC ACID INJ 1 MG in SODIUM CHLORID 0.9% 500 ML INJ 500 ML IV SCH (16:51)
[2018-01-05] VITALS (11 sets, daily range): BP systolic 122–149; BP diastolic 66–95; PULSE 75–92; RESP 24–34; TEMP 97.4–98; O2SAT 95–100
[2018-01-05] MEDS: LACTATED RINGER'S 1000 ML INJ 1,000 ML IV SCH ×2 (00:07→06:10)
[2018-01-05] MEDS: RESP: ALBUTEROL 2.5 MG/IPRATROPIUM 0.5 MG NEB (SCH) INH ×4 (04:00→20:49)
[2018-01-05] MEDS: CHLORHEXIDINE GLUCONATE 2 % 1 PACK (2 CLOTHS) TOP SCH (04:00)
[2018-01-05] MEDS: HEPARIN SODIUM - SQ 10,000 UNITS/ML VIAL SQ SCH ×3 (06:00→20:24)
[2018-01-05] MEDS: INSULIN ASPART SUPPLEMENTAL SCALE SQ SCH ×4 (06:00→18:00)
[2018-01-05 07:25] LABS: ALBUMIN 2.9 GM/DL (3.4-5.0); ALT (GPT) 71 U/L (12-78); AST (GOT) 27 U/L (15-37); BLOOD UREA NITROGEN 6 MG/DL (7-18); CALCIUM 8.6 MG/DL (8.5-10.1); CHLORIDE 104 MEQ/L (98-107); CREATININE 0.61 MG/DL (0.60-1.30); GLOMERULAR FILTRATION RATE 150 ML/MIN (>89); GLUCOSE,RANDOM 92 MG/DL (74-106); SODIUM (NA) 142 MEQ/L (136-145)
[2018-01-05 07:26] LABS: ALKALINE PHOSPHATASE 83 U/L (45-117); TOTAL BILIRUBIN ADULT 0.5 MG/DL (0.2-1.0); TOTAL PROTEIN 6.3 GM/DL (6.4-8.2)
[2018-01-05] MEDS: CHLORHEXIDINE 0.12% (ORAL KIT) 15 ML CUP MT SCH ×2 (08:00→20:00)
[2018-01-05] MEDS: DOCUSATE SODIUM 50 MG/SENNA 8.6 MG TAB PO SCH ×2 (08:46→20:25)
[2018-01-05] MEDS: THIAMINE HCL 100 MG TAB PO SCH (08:46)
[2018-01-05] MEDS: LACTULOSE SYRUP 20 GM/30 ML CUP PO SCH ×2 (08:47→20:25)
[2018-01-05] MEDS: PANTOPRAZOLE SODIUM 40 MG VIAL IV PUSH SCH (08:47)
[2018-01-05] MEDS: ARTIFICIAL TEARS OPTH SOLN 15 ML BTL EACH EYE SCH ×3 (08:47→18:00)
[2018-01-05] MEDS: SODIUM CHLORIDE 0.9% FLUSH 10 ML FLUSH IV FLUSH SCH ×2 (08:47→20:25)
--- NOTE | 2018-01-05 10:15 | HHI.PR ---
Subjective Remarks Patient has significantly improved in last 24 hours. Presently he is off restraints and oriented. No complaints of pain. Objective Vital Signs Date Time Temp Pulse Resp B/P (MAP) Pulse Ox O2 Delivery O2 Flow Rate FiO2 01/05/18 09:58 98 21 01/05/18 08:00 85 01/05/18 08:00 97.4 85 30 122/70 (87) 97 01/05/18 07:00 78 01/05/18 07:00 78 24 126/66 (86) 95 01/05/18 06:00 78 01/05/18 04:00 97.9 80 29 149/95 (113) 96 01/05/18 04:00 80 01/05/18 02:00 84 01/05/18 00:00 85 01/05/18 00:00 97.5 85 30 143/92 (109) 98 01/04/18 22:00 77 01/04/18 20:42 97 21 01/04/18 20:00 81 01/04/18 20:00 98.2 81 22 142/76 (98) 97 01/04/18 18:00 88 01/04/18 17:00 94 01/04/18 17:00 94 30 130/83 (99) 97 01/04/18 16:00 97 31 128/85 (99) 97 01/04/18 16:00 97 01/04/18 15:00 71 28 01/04/18 15:00 71 01/04/18 14:00 95 24 93 01/04/18 14:00 95 01/04/18 13:00 100 01/04/18 13:00 100 28 96 01/04/18 12:00 76 01/04/18 12:00 76 29 96 01/04/18 11:00 82 01/04/18 11:00 82 27 97 I/O 01/04/18 01/04/18 01/04/18 01/05/18 01/05/18 01/05/18 07:00 15:00 23:00 07:00 15:00 23:00 Intake Total 1000 ml 480 ml 2810 ml Output Total 1000 ml 1700 ml 2450 ml Balance 0 ml -1220 ml 360 ml Intake Oral 480 ml 300 ml IV Total 1000 ml 2510 ml Output Urine Total 1000 ml 1700 ml 2450 ml # Bowel Movements 0 0 0 Result Diagram: 5/24/18 0440 01/05/18 0527 Objective Remarks GENERAL: NAD, A&Ox3 HEAD: Normocephalic. NECK: Supple, trachea midline. No lymphadenopathy. EYES: No scleral icterus. No injection or drainage. CARDIOVASCULAR: Regular rate and rhythm without murmurs, gallops, or rubs. RESPIRATORY: Breath sounds equal bilaterally. No accessory muscle use. GASTROINTESTINAL: Abdomen soft, non-tender, nondistended. MUSCULOSKELETAL: No cyanosis, or edema. SKIN: Warm and dry. NEURO: No focal neurological deficitis. A/P Problem List: (1) Alcohol abuse ICD Code: F10.10 - Alcohol abuse, uncomplicated Status: Acute (2) Alcohol withdrawal delirium ICD Code: F10.231 - Alcohol dependence with withdrawal delirium Status: Acute (3) Delirium due to multiple etiologies ICD Code: F05 - Delirium due to known physiological condition Assessment and Plan 37-year-old male admitted secondary to alcohol withdrawal Acute Encephalopathy Alcohol abuse Delirium tremens Continue CIWA protocol Librium 10 mg p.o. every 6 hours added Restraints have been removed Orientation improved Continue multivitamin Continue thiamine Continue folic acid Transaminitis Elevated ammonia level Follow these markers Rhabdomyolysis Downward trending CPK Near normal No need for further monitoring DVT prophylaxis SCDs Cordell Olivares MD January 05, 2018 10:15
[2018-01-05] MEDS: MULTIVITAMIN INJ 10 ML, FOLIC ACID INJ 1 MG in SODIUM CHLORID 0.9% 500 ML INJ 500 ML IV SCH (18:18)
[2018-01-06] VITALS: BP 105/56; PULSE 76; RESP 32; TEMP 97.6; O2SAT 96
[2018-01-06 04:00] VITALS: BP 107/68; PULSE 84; RESP 27; TEMP 98.4; O2SAT 95
[2018-01-06] MEDS: CHLORHEXIDINE GLUCONATE 2 % 1 PACK (2 CLOTHS) TOP SCH (04:00)
[2018-01-06 04:24] LABS: AUTOMATED NEUTROPHIL # 3.9 TH/MM3 (1.8-7.7); BASOPHIL # 0.2 TH/MM3 (0-0.2); BASOPHIL % 2.6 % (0.0-2.0); EOSINOPHIL # 0.4 TH/MM3 (0-0.4); EOSINOPHIL % 4.8 % (0.0-4.0); HEMATOCRIT 38.5 % (39.0-51.0); HEMOGLOBIN 12.9 GM/DL (13.0-17.0); LYMPHOCYTE # 1.7 TH/MM3 (1.0-4.8); MEAN CELL VOLUME 85.8 FL (80.0-100.0); MEAN CORPUSCULAR HEMOGLOBIN 28.8 PG (27.0-34.0); MEAN CORPUSCULAR HGB CONC 33.5 % (32.0-36.0); MEAN PLATELET VOLUME 6.8 FL (7.0-11.0); MONO % 18.1 % (0.0-8.0); MONOCYTE # 1.4 TH/MM3 (0-0.9); NEUT % 51.5 % (16.0-70.0); PLATELET COUNT 381 TH/MM3 (150-450); RED BLOOD COUNT 4.49 MIL/MM3 (4.50-5.90); RED CELL DISTRIBUTION WIDTH 13.2 % (11.6-17.2); WHITE BLOOD COUNT 7.6 TH/MM3 (4.0-11.0)
[2018-01-06 04:44] LABS: ALT (GPT) 62 U/L (12-78); AST (GOT) 19 U/L (15-37); BICARBONATE 28.7 MEQ/L (21.0-32.0); BLOOD UREA NITROGEN 8 MG/DL (7-18); CALCIUM 8.6 MG/DL (8.5-10.1); CHLORIDE 105 MEQ/L (98-107); CREATININE 0.75 MG/DL (0.60-1.30); GLOMERULAR FILTRATION RATE 119 ML/MIN (>89); GLUCOSE,RANDOM 110 MG/DL (74-106); SODIUM (NA) 141 MEQ/L (136-145)
[2018-01-06 04:46] LABS: ALKALINE PHOSPHATASE 84 U/L (45-117); TOTAL BILIRUBIN ADULT 0.4 MG/DL (0.2-1.0); TOTAL PROTEIN 6.5 GM/DL (6.4-8.2)
[2018-01-06] MEDS: HEPARIN SODIUM - SQ 10,000 UNITS/ML VIAL SQ SCH (05:13)
[2018-01-06] MEDS: INSULIN ASPART SUPPLEMENTAL SCALE SQ SCH ×2 (05:13)
[2018-01-06 08:00] VITALS: BP 105/60; PULSE 72; RESP 28; TEMP 98.8; O2SAT 93
[2018-01-06] MEDS: CHLORHEXIDINE 0.12% (ORAL KIT) 15 ML CUP MT SCH (08:00)
[2018-01-06 08:33] VITALS: O2SAT 93
[2018-01-06] MEDS: THIAMINE HCL 100 MG TAB PO SCH (08:47)
[2018-01-06] MEDS: ARTIFICIAL TEARS OPTH SOLN 15 ML BTL EACH EYE SCH (08:47)
[2018-01-06] MEDS: SODIUM CHLORIDE 0.9% FLUSH 10 ML FLUSH IV FLUSH SCH (08:47)
[2018-01-06] MEDS: PANTOPRAZOLE SODIUM 40 MG VIAL IV PUSH SCH (08:48)
[2018-01-06] MEDS: DOCUSATE SODIUM 50 MG/SENNA 8.6 MG TAB PO SCH (08:49)
[2018-01-06] MEDS: LACTULOSE SYRUP 20 GM/30 ML CUP PO SCH (08:50)
[2018-01-06] MEDS ORDERED: Lactulose Liq PO (09:45)
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
--- NOTE | 2018-01-06 10:39 | RADRPT ---
EXAM DATE: 01/06/2018 10:32 AM EDT AGE/SEX: 37 years / Male INDICATIONS: Left arm swelling. CLINICAL DATA: This is the patient's subsequent encounter. Patient reports that signs and symptoms h ave been present for 1 day and indicates a pain score of 4/10. MEDICAL/SURGICAL HISTORY: . Left arm swelling. Ear infection. None. COMPARISON: [facility] [place], ARM LEFT VENOUS DOPPLER, 06/15/2015. . FINDINGS: There is spontaneous flow documented in the brachial, axillary, and subclavian veins. However, there is occlusive thrombus noted in the cephalic vein as well as the basilic vein along its proximal, mid and distal portions. This is a new finding compared to the prior study. CONCLUSION: 1. There is evidence of occlusive DVT in the left upper extremity. Electronically signed by: Nigel Thompson MD 01/06/2018 10:38 AM EDT
[2018-01-06] MEDS ORDERED: APIX5TAB PO (11:51)
== END 2018-01-06 11:25 | disposition home or self-care (01) | DRG 896 ==
LOC: NEDAMB 07:47 → NEDA 12-29 00:19 → HIMN 12-29 01:45
PROVIDERS: ADMIT Hospitalist; ATTEND Hospitalist
PROC: 5A1945Z Respiratory Ventilation, 24-96 Consecutive Hours (ICD-10-PCS; principal; 2017-12-29)
PROC: 0BH17EZ Insertion of Endotracheal Airway into Trachea, Via Natural or Artificial Opening (ICD-10-PCS; 2017-12-29)
DX: F10.231 Alcohol dependence with withdrawal delirium (principal); J96.01 Acute respiratory failure with hypoxia; J96.02 Acute respiratory failure with hypercapnia; N17.9 Acute kidney failure, unspecified; E72.20 Disorder of urea cycle metabolism, unspecified; M62.82 Rhabdomyolysis; F05 Delirium due to known physiological condition; I82.622 Acute embolism and thrombosis of deep veins of left upper extremity; K72.90 Hepatic failure, unspecified without coma; D69.6 Thrombocytopenia, unspecified; R00.1 Bradycardia, unspecified; E87.6 Hypokalemia; F17.200 Nicotine dependence, unspecified, uncomplicated; H66.91 Otitis media, unspecified, right ear; R74.0 Nonspecific elevation of levels of transaminase and lactic acid dehydrogenase [LDH]; Z78.1 Physical restraint status
CPT/HCPCS: 31500; 36600; 71045; 76705; 80048; 80053; 80074; 80076; 80307; 81001; 82140; 82550; 82552; 82805; 82948; 83605; 83735; 84100; 84132; 84443; 84484; 85025; 85027; 85379; 85610; 85730; 87641; 93971; 94002; 94003; 94150; 94640; 94664; 95819; 96361; 96372; 96374; 96375; C9113; J0330; J0360; J1200; J1630; J1644; J2060; J3010; J3475; J3480; J3486; J7030; J7040; J7050; J7120; J7613

== ENCOUNTER 2018-01-16 15:04 | Emergency (ER) | payer SELFPAY ==
[~2018-01-16 15:04] MED LIST changes: +APIX5TAB PO; -IBUP800T23 PO; +Lactulose Liq PO
[2018-01-16 15:10] VITALS: BP 112/60; PULSE 77; RESP 16; TEMP 98.2; O2SAT 100
--- NOTE | 2018-01-16 15:40 | PD ---
HPI Chief Complaint: ENT Complaint Time Seen by Provider: 15:24 Travel History International Travel<30 days: No Contact w/Intl Traveler<30days: No Traveled to known affect area: No History of Present Illness HPI 37-year-old male presents emergency department with right ear discomfort, and decreased hearing for the past 2 weeks. The patient denies significant fever, chills, headache, but has had some sinus congestion. He has no sore throat. He states decreased hearing in the right ear for approximately 2 weeks. There is no drainage from the ear. Patient denies seasonal allergies. Pain is minimal. Patient also complaining of a tender firm area at area of IV placement approximately 2 weeks ago on the right forearm. This is only mildly tender. There is no erythema. He has no other complaints. He has no known drug allergies. [facility] Past Medical History Diminished Hearing: No Immunizations Current: No Social History Alcohol Use: Yes (SOCIALLY) Tobacco Use: Yes Substance Use: No Allergies-Medications (Allergen,Severity, Reaction): Coded Allergies: No Known Allergies (Verified Allergy, Unknown, 12/29/17) Reported Meds & Prescriptions Reported Meds & Active Scripts Active Eliquis (Apixaban) 5 Mg Tab 5 Mg PO BID Take this treatment for 6 months, for blood clot at left arm. [Lactulose Liq] 30 ML Syrp 30 Ml PO BID Use to obtain and maintain 2 bowel movements daily Review of Systems Except as stated in HPI: all other systems reviewed are Neg General / Constitutional: No: Fever Eyes: No: Visual changes HENT: Positive: Headaches, Rhinitis, Rhinorrhea, Congestion, Earache (See history of present), No: Vertigo (Mild.), Lightheadedness, Sore Throat, Nosebleed, Neck Stiffness, Neck Pain, Masses, Gingival Bleeding, Dental Difficulties, Ear Discharge, Other Cardiovascular: No: Chest Pain or Discomfort Respiratory: No: Shortness of Breath Gastrointestinal: No: Abdominal Pain Genitourinary: No: Dysuria Musculoskeletal: No: Pain Skin: Positive Lesions (See history of present illness per), No Rash Neurologic: No: Weakness Psychiatric: No: Depression Endocrine: No: Polydipsia Hematologic/Lymphatic: No: Easy Bruising Physical Exam Narrative GENERAL: Patient is in no acute distress. SKIN: Warm and dry. Normal color. Normal turgor. Patient has minimally tender phlebitis to the right forearm without signs of infection or abscess. HEAD: Atraumatic. Normocephalic. No sinus tenderness to palpation. No TMJ tenderness. EYES: Pupils equal and round. No scleral icterus. No injection or drainage. ENT: No nasal bleeding or discharge. Mucous membranes pink and moist. Right TM has serous otitis with retraction of the tympanic membrane noted. There is no injection. Left TM is normal. Patient has decreased hearing by confrontation in the right. Pharynx is normal. Airway is patent. NECK: Trachea midline. Supple and nontender without lymphadenopathy. CARDIOVASCULAR: Regular rate and rhythm. RESPIRATORY: No accessory muscle use. Clear to auscultation. Breath sounds equal bilaterally. MUSCULOSKELETAL: Extremities without clubbing, cyanosis, or edema. No obvious deformities. NEUROLOGICAL: Awake and alert. No obvious cranial nerve deficits. Motor grossly within normal limits. Five out of 5 muscle strength in the arms and legs. Normal speech. PSYCHIATRIC: Appropriate mood and affect; insight and judgment normal. Data Data Last Documented VS Vital Signs Date Time Temp Pulse Resp B/P (MAP) Pulse Ox O2 Delivery O2 Flow Rate FiO2 01/16/18 15:10 98.2 77 16 112/60 (77) 100 MDM Medical Decision Making Medical Screen Exam Complete: Yes Emergency Medical Condition: Yes Differential Diagnosis Right serous otitis. Eustachian tube dysfunction. Phlebitis. Narrative Course Patient is medically stable at time of exam. Patient will be treated with Tabitha-D as directed Patient also given Flonase nasal spray 2 sprays each nostril daily Patient to follow-up with [facility] as needed Diagnosis Primary Impression: Chronic serous otitis media, right ear Additional Impressions: Eustachian tube dysfunction Qualified Codes: H69.81 - Other specified disorders of eustachian tube, right ear Phlebitis after infusion Qualified Codes: T80.1XXA - Vascular complications following infusion, transfusion and therapeutic injection, initial encounter Referrals: [facility] Patient Instructions: Eustachian Tube Dysfunction (GEN), General Instructions, Serous Otitis Media (ED) Additional Instructions: Patient will be treated with Tabitha-D as directed Patient also given Flonase nasal spray 2 sprays each nostril daily Patient to follow-up with [facility] as needed Med/Other Pt SpecificInfo: Prescription(s) given Disposition: DISCHARGE HOME Condition: Stable Zi Hagan Jan 16, 2018 15:40
[2018-01-16] MEDS ORDERED: FLUT1SPR5 EACH NARE (15:41)
[2018-01-16] MEDS ORDERED: ALLE12TA2 PO (15:41)
== END 2018-01-16 16:10 | disposition home or self-care (01) ==
LOC: NEPK 15:04
DX: H65.21 Chronic serous otitis media, right ear (principal); H69.81 Other specified disorders of Eustachian tube, right ear; T80.1XXA Vascular complications following infusion, transfusion and therapeutic injection, initial encounter; Z72.0 Tobacco use
CPT/HCPCS: 99282